=== PATIENT | male | born 1990 | race Caucasian/White ===

== ENCOUNTER 2017-02-03 22:53 | Emergency (ER) | payer SELFPAY ==
[2017-02-03] MEDS ORDERED: Gentamicin Ophth Ointment 0.3% 3.5 gm Tube ONE (23:25)
[2017-02-03] MEDS ORDERED: HYDROcodone/Acetaminophen 5/325 mg Tablet ONE (23:29)
== END 2017-02-03 23:37 | disposition home or self-care (01) ==
LOC: MADERS 22:53
DX: T15.01XA Foreign body in cornea, right eye, initial encounter (principal); F17.210 Nicotine dependence, cigarettes, uncomplicated; X58.XXXA Exposure to other specified factors, initial encounter
CPT/HCPCS: 99283

== ENCOUNTER 2017-06-01 12:23 | Emergency (ER) | payer SELFPAY ==
[2017-06-01] MEDS ORDERED: Ondansetron ODT 4 MG TAB ONE (12:37)
== END 2017-06-01 12:52 | disposition home or self-care (01) ==
LOC: MADERS 12:23
DX: J11.1 Influenza due to unidentified influenza virus with other respiratory manifestations (principal); F17.210 Nicotine dependence, cigarettes, uncomplicated
CPT/HCPCS: 99283; Q0162

== ENCOUNTER 2018-08-26 19:08 | Emergency (ER) | payer SELFPAY ==
--- NOTE | 2018-08-26 20:19 | RAD ---
THREE VIEWS OF THE LEFT WRIST 08/26/18 HISTORY: Left wrist injury with pain. FINDINGS: Three views of the left wrist shows no evidence of acute fracture or dislocation. No soft tissue swel ling is seen. No degenerative changes are present. IMPRESSION: Unremarkable exam. POS: [facility]
== END 2018-08-26 20:54 | disposition home or self-care (01) ==
LOC: MADERS 19:08
DX: M65.4 Radial styloid tenosynovitis [de Quervain] (principal); Z87.891 Personal history of nicotine dependence
CPT/HCPCS: 29125

== ENCOUNTER 2018-12-06 16:42 | Emergency (ER) | payer SELFPAY ==
[2018-12-06] MEDS ORDERED: Lidocaine 1% 20 ML MDV ONE (17:09)
[2018-12-06] MEDS ORDERED: Lidocaine 2% 20 ml MDV ONE (17:10)
== END 2018-12-06 17:46 | disposition home or self-care (01) ==
LOC: MADERS 16:42
DX: L03.012 Cellulitis of left finger (principal); F17.210 Nicotine dependence, cigarettes, uncomplicated; Z71.6 Tobacco abuse counseling
CPT/HCPCS: 10060; 99406; J2001

== ENCOUNTER 2021-06-29 19:36 | Emergency (ER) | payer SELFPAY ==
[2021-06-29] MEDS ORDERED: predniSONE 20 MG TAB ONE (20:42)
== END 2021-06-29 20:48 | disposition home or self-care (01) ==
LOC: MADERS 19:36
DX: J01.00 Acute maxillary sinusitis, unspecified (principal); F17.210 Nicotine dependence, cigarettes, uncomplicated
CPT/HCPCS: 99407; J7512

== ENCOUNTER 2022-03-20 15:33 | Emergency (ER) | payer SELFPAY | END 2022-03-20 17:50 | disposition home or self-care (01) | LOC: MADERS 15:33 | DX: S93.492A Sprain of other ligament of left ankle, initial encounter (principal); Z87.891 Personal history of nicotine dependence; X58.XXXA Exposure to other specified factors, initial encounter ==

== ENCOUNTER 2022-06-02 13:26 | Emergency (ER) | payer SELFPAY ==
[2022-06-02] MEDS ORDERED: Boostrix 0.5 ML (Tdap) VIAL (>/=7 yrs of age) ONE (14:51)
[2022-06-02] MEDS ORDERED: Clindamycin 150 MG CAP ONE (14:51)
== END 2022-06-02 15:37 | disposition home or self-care (01) ==
LOC: MADERS 13:26
DX: S91.332A Puncture wound without foreign body, left foot, initial encounter (principal); L03.116 Cellulitis of left lower limb; Z23 Encounter for immunization; W45.0XXA Nail entering through skin, initial encounter; Z87.891 Personal history of nicotine dependence
CPT/HCPCS: 90471; 90715

== ENCOUNTER 2023-05-25 17:38 | Emergency (ER) | payer SELFPAY ==
[2023-05-25] MEDS ORDERED: Ketorolac Tromethamine 30 MG/ML VIAL ONE (18:06)
[2023-05-25] MEDS ORDERED: Metoclopramide HCl 10 MG/2 ML VIAL ONE (18:06)
[2023-05-25] MEDS ORDERED: Sodium Chloride 0.9% 1,000 ML ONE (18:06)
[2023-05-25] MEDS ORDERED: diphenhydrAMINE 50 MG/ML VIAL ONE (18:06)
== END 2023-05-25 19:54 | disposition home or self-care (01) ==
LOC: MADERS 17:38
DX: R51.9 Headache, unspecified (principal); Z87.891 Personal history of nicotine dependence
CPT/HCPCS: 96374; 96375; J1200; J1885; J2765; J7050